=== PATIENT | male | born 1980 | race Caucasian/White ===

== ENCOUNTER 2017-06-29 10:34 | Day surgery (SDC) | payer OTHER ==
--- NOTE | 2017-06-19 08:50 | HP ---
PREOPERATIVE HISTORY AND PHYSICAL: DATE OF SURGERY: 06/29/17 DATE OF OFFICE VISIT: 06/18/17 ATTENDING PHYSICIAN: Dr. Nakia Alonso * (DICTATED BY URI MORALES) PROCEDURE: Left shoulder arthroscopic excision of distal clavicle, decompression, debridement, subpectoral biceps tenodesis, and possible rotator cuff repair. CHIEF COMPLAINT: Left shoulder pain. HISTORY OF PRESENT ILLNESS: Kurt is a 37-year-old male who presented to the clinic for follow up of bilateral shoulder pain due to a work-related injury. His left shoulder continues to cause him pain despite conservative measures; therefore, he has agreed to undergo a left shoulder arthroscopic excision of distal clavicle, decompression, debridement, subpectoral biceps tenodesis and possible rotator cuff repair with Dr. Alonso on 06/29/17. PAST MEDICAL HISTORY: 1. Depression. 2. Anxiety. PAST SURGICAL HISTORY: Vasectomy. Denies prior complications with anesthesia. MEDICATIONS: Bupropion HCL ER 150 mg daily. ALLERGIES: No known drug allergies. FAMILY HISTORY: Positive for cancer. SOCIAL HISTORY: He lives with his spouse. He works in [employer]. He is a current smoker at a quarter-pack per day. He reports occasional alcohol consumption. He is right hand dominant. REVIEW OF SYSTEMS: A 14-point review of systems was reviewed with the patient. Positive for current complaint, otherwise negative. Denies chest pain, shortness of breath, fever, chills, history of bleeding disorder, history, of DVT or PE. PHYSICAL EXAMINATION GENERAL: Well-developed, well-nourished 37-year-old male, in no acute distress. Alert and oriented x3. Appropriate mood and affect. VITAL SIGNS: Height 69, weight 190, pulse 79, blood pressure 129/81, temperature 96.4. BMI 28.1. HEENT: Normocephalic, atraumatic. PERRLA. Throat clear. NECK: Supple. PULMONARY: Lungs are clear to auscultation bilaterally. No wheezing, rhonchi, or rales. CARDIOVASCULAR: Regular rate and rhythm. S1 and S2. No murmurs, gallops, or rubs. No edema. ABDOMEN: Positive bowel sounds, soft, nontender. NEUROLOGIC: Alert and oriented x3. Cranial nerves grossly intact. Sensation is intact to light touch. MUSCULOSKELETAL: Left upper extremity: Tender over the bicipital groove. Forward flexion and abduction 160, external rotation to 70, internal rotation to L1. +5/5 rotator cuff strength. Positive Estefani's, Hill, Allison, Speed. +2 radial pulse. Mildly decreased sensation over the ulnar 2 digits. DIAGNOSTIC STUDIES/LAB DATA: MRI of the left shoulder revealed AC joint arthritis, bursitis, tendinopathy of the supraspinatus and subscapularis as well as fluid in the bicipital groove and some partial thickness bursal side tearing in the supraspinatus. IMPRESSION: Left shoulder biceps tendinitis, AC joint arthritis, and impingement. PLAN: The patient is scheduled to undergo a left shoulder arthroscopic excision of distal clavicle, decompression, debridement, subpectoral biceps tenodesis, and possible rotator cuff repair with Dr. Alonso on 06/29/17. He will return to us in 10 to 14 days postop for followup and suture removal. A script for Percocet was prescribed to the patient's pharmacy for postop pain management and keflex for antibiotic prophylaxis. URI MORALES [id number]/[facility] #: [id number] BILL
[~2017-06-29 10:34] MED LIST: Buffered Lidocaine 0.9% SYRIN* 5 ML/SYR SYRINGE INTRADERM ONE; Dexamethasone IV* 4 MG/ML 1 ML (4 MG) IV SLOW PU ONE; Famotidine IV* 10 MG/ML 2 ML (20 mg) IV ONE
[2017-06-29] MEDS ORDERED: ceFAZolin 2 GM PREMIX (*) 2 GM/50 ML BAG IVPB ONE (10:47)
[2017-06-29] MEDS ORDERED: Famotidine IV* 10 MG/ML 2 ML (20 mg) ONE (10:47)
[2017-06-29] MEDS ORDERED: Dexamethasone IV* 4 MG/ML 1 ML (4 MG) ONE (10:47)
[2017-06-29] MEDS ORDERED: Bupivacaine 0.25% SDV* 30 ML ONE ×2 (12:47→14:59)
[2017-06-29] MEDS ORDERED: fentaNYL* 50 MCG/ML 2 ML VIAL (100 MCG VIAL) ONE ×2 (13:03→13:36)
[2017-06-29] MEDS ORDERED: Propofol* 10 MG/ML 20 ML BTL IV PUSH ONE (13:04)
[2017-06-29] MEDS ORDERED: Midazolam* 1 MG/ML 2 ML VIAL (2 MG) ONE (13:04)
[2017-06-29] MEDS ORDERED: Lidocaine 2% PF * 5 ML VIAL ONE (13:04)
[2017-06-29] MEDS ORDERED: Mivacurium Chloride* 20 MG/10 ML VIAL IV ONE (13:04)
[2017-06-29] MEDS ORDERED: ROPIVACAINE 5 MG/ML 30 ML BTL (0.5%) ONE (13:08)
[2017-06-29] MEDS ORDERED: Ketorolac INJ* 30 MG/ML 1 ML VIAL IV PRN (14:20)
[2017-06-29] MEDS ORDERED: HYDROcodone/ACETAMIN 5-325 MG* 1 TAB PO PRN (14:20)
[2017-06-29] MEDS ORDERED: fentaNYL* 50 MCG/ML 2 ML VIAL (100 MCG VIAL) IV PRN (14:20)
[2017-06-29] MEDS ORDERED: oxyCODONE/Acetamin 5/325 MG* TAB PO PRN (14:20)
[2017-06-29] MEDS ORDERED: PROCHLORPERAZINE INJ 5 MG/ML 2 ML VIAL IV PRN (14:20)
[2017-06-29] MEDS ORDERED: Ondansetron INJ* 2 MG/ML VIAL ONE (14:35)
[2017-06-29] MEDS ORDERED: methylPREDNISolone ACETATE 80* 80 MG/ML 1 ML VIAL ONE (14:48)
[2017-06-29 16:11] VITALS: BP 120/81
--- NOTE | 2017-06-30 08:06 | OP ---
DATE OF OPERATION: 06/29/17 [facility] DATE OF : 80 SURGEON: Nakia Alonso MD. APPAREL SALES ASSOCIATE: URI Liao. An assistant store director was needed for the entirety of the case to help with positioning, retraction and was utilized throughout all portions of the case. ANESTHESIOLOGIST: Dr. Pelon Henriquez. ANESTHESIA: General interscalene block. PRE-OP DIAGNOSIS: Left shoulder acromioclavicular joint arthritis, biceps tendonitis, possible partial thickness rotator cuff tear with impingement. POST-OP DIAGNOSIS: Left shoulder acromioclavicular joint arthritis, biceps tendonitis, possible partial thickness rotator cuff tear with impingement. OPERATIVE PROCEDURE: Left shoulder arthroscopy with: 1. Extensive glenohumeral debridement including debridement of the rotator cuff. 2. Subacromial decompression with acromioplasty. 3. Distal clavicle excision. 4. Subpectoral biceps tenodesis. 5. Subacromial injection with 80 mg of Depo-Medrol. COMPLICATIONS: None. ESTIMATED BLOOD LOSS: Minimal. INDICATIONS: Kurt Tripp is a 37-year-old male who sustained a work-related injury to his left shoulder. He has failed conservative management. Risks and benefits of surgery versus nonoperative treatment were discussed at length and included but are not limited to, bleeding, infection, damage to nerves, vessels , surrounding structures, wound nonhealing, persistent pain, need for further surgery, scarring, stiffness, incomplete relief of symptoms, and risks of anesthesia. DESCRIPTION OF PROCEDURE: The patient was greeted in the preoperative area by the attending surgeon. Correct extremity was marked and consent was confirmed. Patient underwent interscalene nerve block by the anesthesiologist in the preoperative area. The patient was then brought back to the operating suite where he was placed in supine position on the operating table. He then underwent general anesthesia with endotracheal intubation, after which he was placed in the right lateral decubitus position. All bony prominences were padded. He was secured with pegboard. Axillary roll was placed. The left arm was draped unsterile with 10 pounds of traction. The left shoulder was then prepped and draped in the usual sterile fashion beginning with chlorhexidine soap, scrub and alcohol wipe and a final prep with ChloraPrep. After appropriate surgical pause indicating side, site, procedure, and administration of antibiotics, the standard postero-lateral portal was made sharply with 11 blade. The scope was introduced into the joint and the joint was examined. The scope was advanced. The undersurface of the supraspinatus anterior portion had partial thickness tearing, maybe 5% or 10%. The subscap was intact. The biceps was inflamed with abundant synovitis and erythema. The glenohumeral joint had grade 0 to 1 changes. The inferior recess was intact. The anterior and posterior labrum had mild fraying. The anterior portal was made in an outside in fashion. The shaver was used to debride back some of the labrum and take the biceps through range of motion. It was very inflamed. The biceps was then tenotomized. The undersurface of the rotator cuff was examined. Again it was probably 3 mm or so of tearing. Incision was made to donell this. It was marked with PDS suture and then checked on the bursal side to see if there was full thickness tear and see if there was softening. The undersurface of the supraspinatus was debrided slightly using the shaver. All fluid and debris was removed from the articular portion and the scope was placed in the subacromial space and the subacromial space was examined. There was abundant hyperemic bursa that was present. The shaver was used to debride this back along with electrocautery device, which helped to maintain hemostasis at all times. Once the bursectomy was completed, the acromioplasty was done by skeletonizing the undersurface of the acromion using electrocautery device. A moderate-sized spur was identified. The CA ligament was peeled back and the spur was then removed using a 4-0 oval sherie. This also allowed visualization of the AC joint, which was examined. There was stenosis of the AC joint with a small meniscus that was still present. The shaver was used to debride back the tissue and to remove all the loose debris and fluid and attention was directed to the distal clavicle. The sherie was placed to the anterior portal and 8 mm of bone was removed under direct arthroscopic visualization using a 4-0 oval sherie. Care was taken to prevent any damage to the coracoclavicular ligament. Final images were obtained. The attention was directed to the rotator cuff, which was probed and found to be intact. There was no evidence of tearing on both sides. Decision was made to not repair this. The final images were obtained. An 18-gauge needle was placed in the subacromial space under arthroscopic visualization. Attention was directed to the biceps. The bed was airplaned to the left side. The anterior aspect of the shoulder was reprepped with ChloraPrep. A 15-blade was used to make an incision in line with the biceps encompassing the inferior two thirds of the pec tendon. The soft tissues were carefully dissected bluntly. The pec was identified and retracted proximally. The fascia was carefully released. The bicipital groove was palpated. A small rosanna in the groove was then made and the biceps was brought through the rent and was found to have tendinopathy as well as tendonitis. The bicipital groove was then prepared using electrocautery device. The red ball rasp as well as osteotome to allow for bony bleeding bed. Q-Fix anchor was then used to drill unicortically and Q-Fix was deployed with excellent purchase. Sutures were passed through the biceps approximately 1 cm proximal to the musculotendinous junction in Kike-Dionicio type configuration. The excess stump was sharply excised and the biceps was shuttled back to the wound and tied down. The wounds were copiously irrigated with sterile saline. The biceps wound was closed in layers using 2-0 Vicryl, 3-0 Monocryl. The portals were closed with 3-0 nylon. The subacromial space was injected with 80 mg of Depo-Medrol and the anterior wound was injected with 20 cc of 0.25% Marcaine plain. Sterile dressings were applied. A Cryo/Cuff and UltraSling were applied. He was awoken from anesthesia and transferred to the PACU in stable condition. POSTOPERATIVE PLAN: He will be nonweightbearing. He will be in the sling for 4 weeks. He will be allowed range of motion to his elbow, wrist, and hand as well as pendulum. He will start therapy in approximately 10 days. I will see the patient back in 10 to 14 days. He will be discharged on pain medications and antibiotics. DVT prophylaxis considered but deferred due to no previous personal or family history. [id number]/[facility] #: [id number] BILL
== END 2017-06-29 16:42 | disposition home or self-care (01) ==
LOC: OREAST 10:34
PROVIDERS: ATTEND Orthopaedic Surgery
DX: M75.42 Impingement syndrome of left shoulder (principal); S46.102A Unspecified injury of muscle, fascia and tendon of long head of biceps, left arm, initial encounter; M19.112 Post-traumatic osteoarthritis, left shoulder; M75.22 Bicipital tendinitis, left shoulder; M54.2 Cervicalgia; M54.12 Radiculopathy, cervical region; X58.XXXA Exposure to other specified factors, initial encounter; Y92.69 Other specified industrial and construction area as the place of occurrence of the external cause; Y99.0 Civilian activity done for income or pay; F17.210 Nicotine dependence, cigarettes, uncomplicated
CPT/HCPCS: C1776; J0690; J1040; J1100; J2250; J2405; J2704; J2795; J3010

== ENCOUNTER 2017-08-24 11:32 | Day surgery (SDC) | payer OTHER ==
--- NOTE | 2017-08-14 18:53 | HP ---
AMENDED REPORT NOW INCLUDES COSIGNER DESIGNATION - ESIGNED BEFORE ADJUSTMENT PREOPERATIVE HISTORY AND PHYSICAL: DATE OF ADMISSION/SURGERY: 08/24/17 ATTENDING SURGEON: Dr. Nakia Alonso * (DICTATED BY URI MORALES) PROCEDURE: Right shoulder arthroscopic decompression and debridement, subpectoral biceps tenodesis. CHIEF COMPLAINT: Right shoulder pain. HISTORY OF PRESENT ILLNESS: Kurt is a 37-year-old male, who presents to the clinic for bilateral shoulder pain due to a work-related injury. His right shoulder has continued to cause him pain despite conservative measures; therefore, he has agreed to undergo a right shoulder arthroscopic decompression and debridement, subpectoral biceps tenodesis with Dr. Alonso on 08/24/17. PAST MEDICAL HISTORY: Depression and anxiety. PAST SURGICAL HISTORY: Vasectomy. Denies prior complications with anesthesia. MEDICATIONS: Bupropion HCl ER 150 mg one by mouth daily. ALLERGIES: No known drug allergies. FAMILY HISTORY: Positive for cancer. SOCIAL HISTORY: He lives with his spouse. He works in [employer]. He is a current smoker a quarter-pack per day. He reports occasional alcohol consumption. He is right hand dominant. REVIEW OF SYSTEMS: A 14-point review of systems was reviewed with the patient. Positive for current complaint, otherwise negative. Denies fevers or chills. Denies chest pain or shortness of breath. Denies history of bleeding disorder. Denies history of DVT or PE. PHYSICAL EXAMINATION GENERAL: Well-developed, well-nourished 37-year-old male, in no acute distress. Alert and oriented x3. Appropriate mood and affect. VITAL SIGNS: Height 69, weight 190, pulse 98, blood pressure 130/85, respiratory rate 16, BMI 28.1. HEENT: Normocephalic, atraumatic. PERRLA. Throat clear. NECK: Supple. PULMONARY: Lungs are clear to auscultation bilaterally. No wheezing, rhonchi, or rales. CARDIO: Regular rate and rhythm. S1 and S2. No murmurs, gallops, or rubs. No edema. ABDOMEN: Positive bowel sounds, soft, nontender. MUSCULOSKELETAL: Right upper extremity, forward flexion and abduction 175, external rotation to 60, internal rotation to L3. +5/5 strength to rotator cuff testing with pain, tenderness to palpation of the proximal biceps tendon. Positive Neer's, Speed's, Hill-Fortunato, [place]'s. +2 radial pulse. Sensation is intact to light touch distally. NEUROLOGIC: Alert and oriented x3. Cranial nerves grossly intact. Sensation is intact to light touch. SKIN: Intact. No warmth or erythema. STUDIES: MRI of the right shoulder revealed partial thickness, bursal and articular side tear. The supraspinatus tendon with subscapularis tendinopathy and fluid along the bicipital groove. IMPRESSION: Right shoulder impingement and biceps tendinitis. PLAN: The patient is scheduled to undergo a right shoulder arthroscopic decompression, debridement and subpectoral biceps tenodesis with Dr. Alonso on 08/24/17. Percocet was sent to his pharmacy for postop pain management. He will follow up in 10 to 14 days postop for followup and suture removal. URI MORALES [id number]/[facility] #: [id number] BILL
[~2017-08-24 11:32] MED LIST changes: -Dexamethasone IV* 4 MG/ML 1 ML (4 MG) IV SLOW PU ONE; -Famotidine IV* 10 MG/ML 2 ML (20 mg) IV ONE; +Famotidine IV* 10 MG/ML 2 ML (20 mg) ONE
[2017-08-24] MEDS ORDERED: ceFAZolin 2 GM PREMIX (*) 2 GM/50 ML BAG IVPB ONE (11:54)
[2017-08-24] MEDS ORDERED: Bupivacaine 0.25% SDV* 30 ML ONE (13:44)
[2017-08-24] MEDS ORDERED: fentaNYL* 50 MCG/ML 2 ML VIAL (100 MCG VIAL) ONE ×2 (14:01→16:13)
[2017-08-24] MEDS ORDERED: Midazolam* 1 MG/ML 2 ML VIAL (2 MG) ONE ×2 (14:01→14:37)
[2017-08-24] MEDS ORDERED: Bupivacaine 0.5% SDV PF* 10-30ML VIAL ONE (14:25)
[2017-08-24] MEDS ORDERED: Ketorolac INJ* 30 MG/ML 1 ML VIAL ONE (14:46)
[2017-08-24] MEDS ORDERED: Propofol* 10 MG/ML 20 ML BTL IV PUSH ONE (14:46)
[2017-08-24] MEDS ORDERED: Dexamethasone IV* 4 MG/ML 1 ML (4 MG) ONE (14:46)
[2017-08-24] MEDS ORDERED: Ondansetron INJ* 2 MG/ML VIAL ONE (14:46)
[2017-08-24] MEDS ORDERED: Lidocaine 2% PF * 5 ML VIAL ONE (14:46)
[2017-08-24] MEDS ORDERED: PROCHLORPERAZINE INJ 5 MG/ML 2 ML VIAL IV PRN (15:25)
[2017-08-24] MEDS ORDERED: HYDROcodone/ACETAMIN 5-325 MG* 1 TAB PO PRN (15:25)
[2017-08-24] MEDS ORDERED: Ondansetron INJ* 2 MG/ML VIAL IV PRN (15:25)
[2017-08-24] MEDS ORDERED: Acetaminophen TAB* 325 MG PO PRN (15:25)
[2017-08-24] MEDS ORDERED: DiMENhydriNATE IV* 50 MG/ML VIAL IV PUSH PRN (15:25)
[2017-08-24] MEDS ORDERED: HYDROmorphone INJ* 1 MG/ML CARPUJECT SYRINGE IV PRN (15:25)
[2017-08-24 17:55] VITALS: BP 132/93
--- NOTE | 2017-08-25 10:40 | OP ---
CC: PCP* DATE OF OPERATION: 08/24/17 - [facility] WITH [facility] DATE OF : 80 SURGEON: Nakia Alonso MD SUPERINTENDENT STATIONS: URI Mejia. An study assistant was needed for the entirety of the case to help with positioning, retraction, and utilized throughout all portions of the case. ANESTHESIOLOGIST: Dr. Lassiter. ANESTHESIA: General interscalene block. PRE-OP DIAGNOSIS: Right shoulder partial thickness tear of the rotator cuff with bicipital tendonitis and impingement. POST-OP DIAGNOSIS: High-grade partial thickness tear of the supraspinatus. Bicipital tendinitis. OPERATIVE PROCEDURE: Right shoulder arthroscopy with: 1. Glenohumeral debridement. 2. Subacromial decompression with acromioplasty. 3. Rotator cuff repair double row fashion. 4. Subpectoral biceps tenodesis. COMPLICATIONS: None. ESTIMATED BLOOD LOSS: Minimal. IMPLANTS USED: One 4.75 Healicoil, one MultiFix, and one 2.8 mm Q-Fix anchor. INDICATIONS: Kurt Tripp is a 37-year-old male who sustained work-related injury to bilateral shoulders. He had his left shoulder previously operated on , was doing well, and was interested in getting his right shoulder taken care of. MRI was done that confirmed partial thickness tearing. Risks and benefits of surgery were discussed at length and including but not limited to bleeding, infection, damage to nerves, vessels, surrounding structures, wound nonhealing, persistent pain, need for further surgery, scarring, incomplete relief of symptoms, risk of anesthesia. DESCRIPTION OF PROCEDURE: The patient was greeted in the preoperative area by the attending surgeon. Correct extremity was marked, consent was confirmed. Patient was then brought back to the operating suite where he underwent interscalene nerve block after which he underwent general anesthesia with endotracheal intubation. The patient was then placed in left lateral decubitus position with an axillary roll. All bony prominences were padded. The right arm was draped unsterile with 10 pounds of traction. The right shoulder was prepped and draped in the usual sterile fashion beginning with Chlorhexidine soap, scrub, and alcohol wipe and a final prep of ChloraPrep. After appropriate surgical pause, indicating side, site, procedure, and administration of antibiotics, the standard postero-lateral portal was made with an 11 blade. Scope was introduced to the joint and the joint was examined. There was abundant erythema and hyperemia. There is high-grade partial thickness tearing of the supraspinatus. There was obvious injury to the biceps alisson. There was superior labral tear with biceps tendonitis as well as tendinopathy. The subscap was intact. The glenohumeral joint had grade 0 to 1 changes. The inferior recess was intact. The anterior portal was made in an outside in fashion. The shaver was used to debride the anterior, posterior, and superior labrum as well as the alisson. The biceps was then tenotomized for later tenodesis. The undersurface of the rotator cuff, supraspinatus was debrided and then it was determined that there was concern for high-grade partial thickness tearing. Therefore, it was marked with an 18 gauge needle and then 0 PDS suture. Once the debridement was complete, attention was directed in the subacromial space. The scope was positioned in the subacromial space. The shaver was used to place to the lateral portal to remove the abundant bursa that was present. The undersurface of the acromion was identified and there was a moderate sized spur , which was skeletonized using electrocautery device and then debrided back using the arthroscopic bur. All loose debris was removed and attention was directed to the rotator cuff. The vast majority of the rotator cuff was in good condition but the portion where it was marked with the 0 PDS suture had abundant erythema. This was then probed and found to have high-grade partial thickness tearing. Decision was made to repair this. The tear was completed using an 11 blade. The shaver was used to debride it back. The electrocautery device was used to debride the greater tuberosity. Once this was repaired, it was then prepared in the usual fashion with electrocautery device, the rasp as well as the sherie to gently decorticate. The awl was then used to place through a separate stab incision, one 4.75 Healicoil, which was placed with excellent purchase and passed through the tendon in horizontal mattress configuration. These were then tied down arthroscopically and then passed through a second anchor MultiFix. This was then impacted in position with excellent purchase. This allowed for double row fixation. The shoulder was taken through range of motion and found to be intact and the wounds were copiously irrigated. Final images were obtained. Attention was directed to the biceps. The bed was airplaned slightly to the right side. The anterior aspect of the shoulder was prepped again with ChloraPrep. An incision was made in line with the biceps and soft tissues were carefully dissected to expose the pec. The pec was identified and lifted superiorly to expose the bicipital groove. The biceps was then brought through the wound. There was found to have abundant synovitis as well as tendinopathy. The groove was prepared in the usual fashion with electrocautery device, the round ball rasp and the osteotome. Once this was done, a Q-Fix guide was drilled unicortically into the groove and placed with excellent purchase. The sutures were then passed through the tendon in a Kike-Dionicio type configuration. Excess stump was sharply excised and then shuttled back into the wound. The wounds were copiously irrigated. The portals were closed with 3-0 nylon. The anterior wound was closed in layers using 2-0 Vicryl and 3-0 Monocryl. Sterile dressings were applied. The anterior wound was injected with 20 cc of 0.25% Marcaine plain. Sterile dressing , Cryo/Cuff, and UltraSling were placed. He was awoken from anesthesia and transferred to PACU in stable condition. POSTOPERATIVE PLAN: He will be nonweightbearing. He will be in sling for 6 weeks. He will be discharged on pain medications and antibiotics. I will see the patient back in 10 to 14 days. DVT prophylaxis considered but deferred due to no previous personal or family history. I will see the patient back in 10 to 14 days. [id number]/[facility] #: [id number] BILL
== END 2017-08-24 17:50 | disposition home or self-care (01) ==
LOC: OREAST 11:32
PROVIDERS: ATTEND Orthopaedic Surgery
DX: S46.011A Strain of muscle(s) and tendon(s) of the rotator cuff of right shoulder, initial encounter (principal); M75.21 Bicipital tendinitis, right shoulder; M25.811 Other specified joint disorders, right shoulder; F17.210 Nicotine dependence, cigarettes, uncomplicated; X50.0XXA Overexertion from strenuous movement or load, initial encounter; Y92.89 Other specified places as the place of occurrence of the external cause; Y99.0 Civilian activity done for income or pay
CPT/HCPCS: C1713; C1776; J0690; J1100; J1885; J2250; J2405; J2704; J3010

== ENCOUNTER 2018-06-28 11:02 | Day surgery (SDC) | payer OTHER ==
[~2018-06-28 11:02] MED LIST changes: +Dexamethasone IV* 4 MG/ML 1 ML (4 MG) IV SLOW PU ONE; +Famotidine IV* 10 MG/ML 2 ML (20 mg) IV ONE; -Famotidine IV* 10 MG/ML 2 ML (20 mg) ONE
[2018-06-28] MEDS ORDERED: Famotidine IV* 10 MG/ML 2 ML (20 mg) ONE (11:17)
[2018-06-28] MEDS ORDERED: ceFAZolin 2 GM PREMIX in ORs 2 GM/50 ML BAG IVPB ONE (11:17)
[2018-06-28] MEDS ORDERED: Dexamethasone IV* 4 MG/ML 1 ML (4 MG) ONE (11:17)
[2018-06-28] MEDS ORDERED: fentaNYL* 50 MCG/ML 2 ML VIAL (100 MCG VIAL) ONE (11:27)
[2018-06-28] MEDS ORDERED: Midazolam* 1 MG/ML 5 ML VIAL (5 MG) ONE (11:27)
[2018-06-28] MEDS ORDERED: Lidocaine 2% PF * 5 ML VIAL ONE (11:31)
[2018-06-28] MEDS ORDERED: Ketorolac INJ* 30 MG/ML 1 ML VIAL IV PRN (12:14)
[2018-06-28] MEDS ORDERED: Acetaminophen TAB* 325 MG PO PRN (12:14)
[2018-06-28] MEDS ORDERED: DiMENhydriNATE IV* 50 MG/ML VIAL IV PUSH PRN (12:14)
[2018-06-28] MEDS ORDERED: Naloxone* 0.4 MG/ML 1 ML VIAL IV PRN (12:14)
[2018-06-28] MEDS ORDERED: fentaNYL* 50 MCG/ML 2 ML VIAL (100 MCG VIAL) IV PRN (12:14)
[2018-06-28] MEDS ORDERED: Morphine VIAL* 4 MG/ML VIAL (1 ml vial) IV PRN (12:14)
[2018-06-28] MEDS ORDERED: HYDROcodone/ACETAMIN 5-325 MG* 1 TAB PO PRN (12:14)
[2018-06-28] MEDS ORDERED: Ondansetron INJ* 2 MG/ML VIAL IV PRN (12:14)
[2018-06-28] MEDS ORDERED: ROPIVACAINE 5 MG/ML 30 ML BTL (0.5%) ONE (12:25)
[2018-06-28] MEDS ORDERED: Lidocaine 1%* 5 ML VIAL ONE (12:26)
[2018-06-28] MEDS ORDERED: Bupivacaine 0.25% EPI 200,000* 30 ML SDV ONE (13:12)
[2018-06-28] MEDS ORDERED: Bupivacaine 0.25% SDV* 30 ML ONE (13:13)
[2018-06-28] MEDS ORDERED: Propofol* 10 MG/ML 20 ML BTL IV PUSH ONE (14:57)
[2018-06-28] MEDS ORDERED: Ondansetron INJ* 2 MG/ML VIAL ONE (15:11)
[2018-06-28 17:13] VITALS: BP 131/88
--- NOTE | 2018-07-01 06:51 | OP ---
OPERATIVE REPORT: DATE OF OPERATION: 06/28/18 DATE OF : 80 SURGEON: Nakia Alonso MD FILTER TANK TENDER HELPER: URI Liao An plumber's assistant was needed for the entirety of the case to help with positioning, retraction and was utilized throughout all portions of the case. ANESTHESIOLOGIST: Dr. Sullivan. ANESTHESIA: General interscalene block. PRE-OP DIAGNOSIS: Right shoulder status post previous repair of the rotator cuff, possible retear. POST-OP DIAGNOSIS: Right shoulder status post previous repair of the rotator cuff, possible retear. OPERATIVE PROCEDURE: Right shoulder arthroscopy with rotator cuff repair using Regeneten patch and revision decompression. INDICATIONS: Kurt Tripp is a 38-year-old male, who sustained a work-related injury to both shoulders actually, but the right shoulder underwent a rotator cuff repair. He was concerned that he had persistent pain after he was recovering and we did imaging studies that confirmed that there may be a small punctate tear in the rotator cuff. He was having persistent pain and incomplete relief of symptoms and elected to proceed with surgical treatment. Risks and benefits were discussed at length that included but not limited to bleeding; infection; damage to nerves, vessels, surrounding structures; wound nonhealing; persistent pain; need for further surgery; scarring; stiffness; incomplete relief of symptoms; risks of anesthesia. COMPLICATIONS: None. ESTIMATED BLOOD LOSS: Minimal. DESCRIPTION OF PROCEDURE: The patient was greeted in the preoperative area by the attending surgeon. Correct extremity was marked, consent was confirmed. The patient was brought back to the operating suite where he was placed in the supine position on the operating room table. He then underwent general anesthesia with endotracheal intubation after which he was placed in the left lateral decubitus position with all bony prominences padded. He was secured with a peg board, an axillary roll was placed. The right shoulder was prepped and draped in the usual sterile fashion beginning with chlorhexidine soap, scrub , and alcohol wipe, and a final prep with ChloraPrep. After appropriate surgical pause indicating site, side, procedure, and administration of antibiotics, the standard posterolateral portal was made sharply with an 11 blade, the scope was introduced through the joint. There was abundant scar tissue, but the glenohumeral joint was accessed. There was no evidence of any new tearing, but he had stretched his previous sutures, but there was evidence of repaired tissue. The glenohumeral joint had grade 0 to 1 changes. The anterior, posterior, and superior labrum appeared to be stable. There was no need for debridement. Once this was identified, attention was directed to the subacromial space. The scope was positioned in the subacromial space and examined, there was bursa present. The lateral portal was then made using needle localization. Shaver was used to debride back the bursa. There was no evidence of an obvious tear. The cuff tissue was at the insertion site, had some partial-thickness tearing or fraying, but the remainder of the cuff appeared to be okay. There was no obvious leak through of water from the previous intraarticular portion of the case. At this point, it was probed and found to be somewhat thin at the insertion site of the supraspinatus to the bone. Therefore, decision was made not to take down his entire repair but to try to augment this and can treat this as a high-grade partial- thickness tear. The electrocautery device was used to skeletonize the acromion and the 4-0 oval bur was then used to do a revision acromioplasty to allow for removal any excess acromial edge. The attention was directed to the rotator cuff and the Regeneten patch was brought to the field, size medium. This was secured medially with tendon dayday and laterally with bone dayday. This was placed in the area of concern to act as a repair of the rotator cuff without disrupting the previous repair. The shoulder was taken through ROM and found to be acceptable. The final images were obtained. The wounds were copiously irrigated with sterile saline. Portals were closed with 3-0 nylon, sterile dressings were applied, Cryo/Cuff, and UltraSling were applied. He was awoken from anesthesia, transferred to PACU in stable condition. Post operative plan: He will be nonweightbearing. He will be range of motion as tolerated. Start physical therapy next week. He will be discharged on pain medications and antibiotics. I will see the patient back in 10 to 14 days. DVT prophylaxis considered but deferred due to no previous personal or family history. I will see the patient back in 10 to 14 days. [id number]/[facility] #: [id number] [facility] HEALTHDonavan
== END 2018-06-28 16:46 | disposition home or self-care (01) ==
LOC: OREAST 11:02
PROVIDERS: ATTEND Orthopaedic Surgery
DX: S46.011D Strain of muscle(s) and tendon(s) of the rotator cuff of right shoulder, subsequent encounter (principal); Z72.0 Tobacco use; F41.8 Other specified anxiety disorders; X58.XXXD Exposure to other specified factors, subsequent encounter; Y92.9 Unspecified place or not applicable; G89.18 Other acute postprocedural pain
CPT/HCPCS: 88304; C1713; J0690; J1100; J2250; J2405; J2704; J2795; J3010

== ENCOUNTER 2019-06-13 07:08 | Day surgery (SDC) | payer OTHER ==
[~2019-06-13 07:08] MED LIST changes: -Buffered Lidocaine 0.9% SYRIN* 5 ML/SYR SYRINGE INTRADERM ONE; +Buffered Lidocaine 1% SYRIN* 1 ML/SYRINGE INTRADERM ONE; -Dexamethasone IV* 4 MG/ML 1 ML (4 MG) IV SLOW PU ONE; -Famotidine IV* 10 MG/ML 2 ML (20 mg) IV ONE; +Lactated Ringers 1000 ML Bag* 1,000 ML IV SCH
[2019-06-13] MEDS ORDERED: ROPIVACAINE 5 MG/ML 30 ML BTL (0.5%) ONE (07:24)
[2019-06-13] MEDS ORDERED: Dexmedetomidine* 200 MCG/2 ML 2 ML VIAL ONE (07:25)
[2019-06-13] MEDS ORDERED: ceFAZolin 2 GM PREMIX in ORs 2 GM/50 ML BAG ONE (07:28)
[2019-06-13] MEDS ORDERED: Propofol* 10 MG/ML 20 ML BTL ONE (08:02)
[2019-06-13] MEDS ORDERED: Rocuronium* 10 MG/ML VIAL ONE (08:02)
[2019-06-13] MEDS ORDERED: Lidocaine 2% PF * 5 ML VIAL ONE ×2 (08:02→09:15)
[2019-06-13] MEDS ORDERED: Midazolam* 1 MG/ML 2 ML VIAL (2 MG) ONE (08:02)
[2019-06-13] MEDS ORDERED: fentaNYL* 50 MCG/ML 2 ML VIAL (100 MCG VIAL) ONE ×2 (08:03→11:00)
[2019-06-13] MEDS ORDERED: Dexamethasone IV* 4 MG/ML 1 ML (4 MG) ONE (09:49)
[2019-06-13] MEDS ORDERED: Metoclopramide IV* 5 MG/ML 2 ML VIAL ONE (09:49)
[2019-06-13] MEDS ORDERED: Ketorolac INJ* 30 MG/ML 1 ML VIAL ONE (09:49)
[2019-06-13] MEDS ORDERED: Ondansetron INJ* 2 MG/ML VIAL ONE (09:49)
[2019-06-13] MEDS ORDERED: HYDROmorphone INJ1* 1 MG/ML SYRINGE IV PRN (09:50)
[2019-06-13] MEDS ORDERED: oxyCODONE TAB* 5 MG TAB PO PRN (09:50)
[2019-06-13] MEDS ORDERED: DiMENhydriNATE IV* 50 MG/ML VIAL IV PUSH PRN (09:50)
[2019-06-13] MEDS ORDERED: Naloxone* 0.4 MG/ML 1 ML VIAL IV PRN (09:50)
[2019-06-13] MEDS ORDERED: EPHEDrine (Pressors)* 50 MG/ML VIAL ONE (10:46)
[2019-06-13] MEDS ORDERED: Acetaminophen IV 1GM/100ML * 100 ML ONE (11:02)
[2019-06-13 13:10] VITALS: BP 106/70
--- NOTE | 2019-06-13 16:26 | OP ---
CC: PCPLouise NP * DATE OF OPERATION: 06/13/19 - [facility] DATE OF : 80 SURGEON: Nakia Alonso MD. CNC MAINTENANCE TECHNICIAN: URI Liao. An liaison inspection laboratory assistant was needed for the entirety of the case to help with positioning, retraction, and was utilized throughout all portions of the case. ANESTHESIOLOGIST: Dr. Calero. ANESTHESIA: General anesthesia with a block. PRE-OP DIAGNOSIS: Persistent pain after right shoulder rotator cuff repair with high-grade partial thickness tear and acromioclavicular joint arthritis. POST-OP DIAGNOSIS: Persistent pain after right shoulder rotator cuff repair with high-grade partial thickness tear and acromioclavicular joint arthritis. OPERATIVE PROCEDURE: Right shoulder arthroscopy with: 1. Extensive glenohumeral debridement. 2. Revision decompression. 3. Revision rotator cuff repair in a double-row fashion augmented by Regeneten patch. 4. Arthroscopic distal clavicle excision. 5. Removal of implant x 3. COMPLICATIONS: None. ESTIMATED BLOOD LOSS: Minimal. IMPLANTS USED: One Healicoil, two MultiFix with one size large Regeneten patch. INDICATIONS: Kurt Tripp is a 39-year-old male with persistent shoulder pain. He underwent a previous right shoulder rotator cuff repair for partial thickness tear, which continued to have pain. He had a partial thickness tear which was treated with Regeneten patch after that surgically and he continued to struggle. At this point, he has AC joint arthritis and pain and partial thickness tear of the rotator cuff that did not respond well to the Regeneten patch and discussion was made. After multiple opinions and options were discussed, he elected to proceed with surgical treatment. Risks and benefits were discussed at length including, but not limited to bleeding; infection; damage to nerves, vessels, surrounding structures; wound nonhealing; persistent pain; need for further surgery; scarring; stiffness; incomplete relief of symptoms; risk of anesthesia and the cuff not healing again. The patient was a smoker at that time and has since quit smoking which could affect his healing status. DESCRIPTION OF PROCEDURE: The patient was greeted in the preoperative area by the attending surgeon. Correct extremity was marked and consent was confirmed. The patient underwent interscalene nerve block by anesthesiologist, after which he was brought back to the operating suite where he was placed in supine position on the operating table and underwent general anesthesia and endotracheal intubation, after which he was placed in the left lateral decubitus position with an axillary roll positioned. The right shoulder was draped unsterile with 10 pounds of traction. The right shoulder was then prepped and draped in the usual sterile fashion beginning with chlorhexidine soap, scrub, and alcohol wipe, and a final prep with ChloraPrep. After appropriate surgical pause indicating side, site, procedure, and administration of antibiotics, the standard postero-lateral portal was made sharply with 11-blade. The scope was introduced into the joint and the joint was examined. There was abundant thick tissue to get through to get into the joint and then there was abundant synovitis that was present. The inferior recess was intact. There were some mild chondral changes grade 1 and 2 changes and the undersurface of the rotator cuff had evidence of pulled sutures that had lost fixation, but the cuff was healed around that. The anterior portal was made in an outside-in fashion. The subscap was intact. Shaver was used to smooth out anterior, posterior, superior labrum unstable flaps and do a small chondroplasty, after which the undersurface of the cuff was then tagged with an 0-PDS suture for identification in the subacromial space. Once the debridement was completed, attention was directed to subacromial space. The lateral portal was made in an outside-in fashion. The scope was positioned in the subacromial space. There was abundant synovitis and thick scar tissue that was present. There was no obvious full thickness tears of the rotator cuff and the previous implants were identified, the PEEK dayday, which were then removed. The acromion already had an acromioplasty done where there is a small ridge. The decision was to try to take more acromion to remove the scar as well as allow for easier passage of sutures. This also helped us to get to the AC joint, which was identified. The undersurface, there was abundant scar tissue which was debrided back using the electrocautery device and shaver. Once the AC joint was identified, the acromioplasty revision was done using a 4.0 oval bur. All excess debris was removed and attention was directed to the AC joint. With the sherie brought into the anterior portal, the distal 8 mm were then resected of the clavicle using the sherie. Hemostasis was maintained using electrocautery device. All excess scar tissue and debris was removed and the images were visualized. Attention was then directed to the rotator cuff. Previously marked 0-PDS suture was used as a guide for where the tear was and completed using the 11 blade. The soft tissues had already been treated with a Regeneten patch and there was abundant tissue that was present and this was then taken away with biters and lamar to expose the greater tuberosity, which was then visualized and then the bur was used to skeletonize the greater tuberosity. The rasp as well. Once the joint was visualized, the previous sutures that had been passed through the cuff were also removed and the cuff tissue was mobilized. The cuff tissue was debrided back as well to allow for a good bony bleeding bed. At this point, the decision was made to treat this in a double-row fashion. We tried and spread the forces equally. Therefore, through a separate stab incision, one Healicoil was placed about the medial row, with care not to interfere with the previously placed anchor. This was placed with excellent purchase and he had good quality bone. Sutures were then passed in a horizontal mattress configuration. Quality of the suture was thick, but good quality. This was passed in a horizontal mattress configuration. Once the sutures were passed, it was then tied down using a horizontal mattress configuration. One strand from each knot was then passed through an anterolateral and posterolateral anchor for double-row fixation. This is a MultiFix. This allowed for a compression of the cuff as well as restoring to the anatomy. Because this is a revision surgery and because this patient is very young, we decided to augment with a Regeneten patch as well. So, size large Regeneten patch was then chosen, brought to the field. A second stab incision was made to allow for cannula placement. The graft was secured to the tendon with tendon dayday and then laterally with three PEEK bone dayday. The graft was well fixed. The wounds were then thoroughly irrigated and then the shoulder was lavaged. The wounds were copiously irrigated. The portals were closed with 3-0 nylon in interrupted fashion. The final images were obtained. The wounds were closed with 3-0 nylon in an interrupted fashion. Sterile dressings were applied. Cryo/Cuff and Ultra-Sling were applied. He was awoken from anesthesia and transferred to the PACU in stable condition. POSTOPERATIVE PLAN: He will be nonweightbearing. He will be discharged in a sling and he will be discharged on pain medication and DVT prophylaxis was considered but deferred due to no previous personal or family history. [id number]/[facility] #: [id number] MTDDonavan
== END 2019-06-13 13:05 | disposition home or self-care (01) ==
LOC: OREAST 07:08
PROVIDERS: ATTEND Orthopaedic Surgery
DX: S46.011D Strain of muscle(s) and tendon(s) of the rotator cuff of right shoulder, subsequent encounter (principal); M19.211 Secondary osteoarthritis, right shoulder; Z87.891 Personal history of nicotine dependence; F41.8 Other specified anxiety disorders; G89.18 Other acute postprocedural pain; X58.XXXD Exposure to other specified factors, subsequent encounter; Y92.9 Unspecified place or not applicable
CPT/HCPCS: C1713; J0690; J1100; J1885; J2250; J2405; J2704; J2765; J2795; J3010